=== PATIENT | female | born 1990 | race African-American/Black ===

== ENCOUNTER 2016-09-05 11:15 | Emergency (ER) | payer OTHER ==
[2016-09-05 11:40] LABS: HEMATOCRIT 38.6 % (36.0-46.0); MCH 29.5 PG (29.0-34.0); MCHC 33.9 G/DL (30.0-36.0); MCV 86.9 FL (83-99); MEAN PLAT.VOLUME 9.7 uM^3 (9.5-12.4); PLATELET COUNT 304 K/uL (156-360); RBC DIS.WIDTH-CV 12.5 % (11.8-14.6); RBC DIS.WIDTH-SD 38.9 % (39-53); RED BLOOD COUNT 4.44 M/uL (3.80-5.20); WHITE BLOOD COUNT 10.3 K/uL (4.1-10.2)
[2016-09-05 11:43] LABS: BASOPHIL COUNT 0.1 K/uL (0-0.1); EOSINOPHIL (%) 1.9 % (0-5); EOSINOPHIL COUNT 0.2 K/uL (0-0.3); IMMATURE GRANULOCYTE (%) 0.1 % (0.0-0.7); IMMATURE GRANULOCYTE COUNT 0.1 K/uL; LYMPHOCYTE COUNT 2.7 K/uL (1.0-2.8); MONOCYTE (%) 4.7 % (3-12); MONOCYTE COUNT 0.5 K/uL (0-0.8); NEUTROPHIL (%) 66.6 % (45-76); NEUTROPHIL COUNT 6.9 K/uL (1.8-6.4)
[2016-09-05 11:50] LABS: AMYLASE 110 IU/L (1-118); CHLORIDE 111 mEq/L (99-109)
[2016-09-05 11:51] LABS: POTASSIUM 3.8 mEq/L (3.7-5.4); SODIUM 142 mEq/L (136-147)
[2016-09-05 11:52] LABS: GLUCOSE 90 mg/dL (70-99)
[2016-09-05 11:54] LABS: ANION GAP 8 MEQ/L (2-14)
[2016-09-05 11:55] LABS: SERUM ETHYL ALCOHOL < 10 mg/dL
[2016-09-05 11:57] LABS: UREA NITROGEN (BUN) 10 mg/dL (9-23)
[2016-09-05 11:59] LABS: GFR ESTIMATE (CALCULATED) > 59 mL/min/; LIPASE 26 U/L (1.0-51.0)
[2016-09-05 12:05] LABS: QUANTITATIVE HCG < 4.0 MIU/ML
[2016-09-05] MEDS ORDERED: FLEXERIL10 MG PO (12:29)
[2016-09-05] MEDS ORDERED: NAPROSYN500 MG PO (12:29)
== END 2016-09-05 14:26 | disposition home or self-care (01) ==
LOC: TRA 11:15
PROVIDERS: Emergency Medicine
DX: T14.8 Other injury of unspecified body region (principal); M79.604 Pain in right leg; M79.605 Pain in left leg; V48.5XXA Car driver injured in noncollision transport accident in traffic accident, initial encounter; Y92.411 Interstate highway as the place of occurrence of the external cause
CPT/HCPCS: 70450; 71010; 73552; 73590; 80048; 81003; 82150; 83690; 84702; 85025; 86850; 86900; 86901; 99281; 99284; G0480